=== PATIENT | female | born 1990 | race Two or more races ===

== ENCOUNTER 2018-08-19 21:57 | Emergency (ER) | payer OTHER ==
--- NOTE | 2018-08-19 22:04 | PDOC ---
History of Present Illness - General History Source: Patient Exam Limitations: No Limitations - History of Present Illness Initial Comments: 08/19/18 22:39 The patient is a 27 year old female, with a significant PMH asthma, who presents to the emergency department with bilateral leg pain that began a few days ago. The patient states she went to work and noticed a sharp constant pain to her leg bilaterally that progressively worsened. The patient reports she went to Urgent Care and was prescribed Naproxen however no relief was noted. The patient denies any numbness or tingling. Denies an falls. Denies chest pain, shortness of breath, headache and dizziness. Denies fever, chills, nausea, vomit, diarrhea and constipation. PAST MEDICAL HISTORY: mentioned in HPI PAST SURGICAL HISTORY: no significant history FAMILY HISTORY: no pertinent history SOCIAL HISTORY: Pt lives with family and is employed. MEDICATIONS: reviewed ALLERGIES: As per nursing notes Adult ROS General: No fevers or chills, no weakness, no weight loss HEENT: No change in vision. No sore throat,. No ear pain CardioVascular: No chest pain or shortness of breath Respiratory:No cough, or wheezing. Gastrointestinal: no nausea, vomiting, diarrhea or constipation, No rectal bleeding Genitourinary: No dysuria, hematuria, or frequency Musculoskeletal: +Bilateral leg pain Neurologic: No headache, vertigo, dizziness or loss of consciousness Psychiatric: nor depression Skin: No rashes or easy bruising Endocrine: no increased thirst or abnormal weight change Allergic: no skin or latex allergy All other systems reviewed and normal Basic PE GENERAL: The patient is awake, alert, and fully oriented, in no acute distress. HEAD: Normal with no signs of trauma. EYES: Pupils equal, round and reactive to light, extraocular movements intact, sclera anicteric, conjunctiva clear. EXTREMITIES: +Diffuse tenderness on feet and ankle of the anterior left leg. + Anterior right leg ankle. No erythema, swelling or increase in warmth. NEUROLOGICAL: Normal speech, normal gait. PSYCH: Normal mood, normal affect. SKIN: Warm, Dry, normal turgor, no rashes or lesions noted. <Eric Parada - Last Filed: 08/19/18 22:39> - General History Source: Patient Exam Limitations: No Limitations - History of Present Illness Initial Comments: 08/19/18 22:35 A portion of this note was documented by scribe services under my direction. I have reviewed the details of the note, within reason, and agree with the documentation with the following case summary and management plan written by me. Patient treated in the ED. Nursing notes are reviewed and incorporated into the medical decision-making. Vital signs reviewed. Assessment and plan: This is a 27-year-old female who comes in complaining of arthralgias and myalgias of her legs bilateral times several weeks. Patient denies any systemic symptoms as fevers headache and body aches or chills Workup done including CBC, comp ultrasound Doppler and patient given Toradol for the pain 08/19/18 23:29 Patient's symptoms improved post Toradol. Patient's ultrasound Doppler was negative for DVT. Patient's blood work was unremarkable her CRP was still pending <Chula Erazo I - Last Filed: 08/19/18 23:33> - General Chief Complaint: Pain Stated Complaint: B/L LEG PAIN Time Seen by Provider: 08/19/18 22:03 Past History <Eric Parada - Last Filed: 08/19/18 22:39> <Chula Erazo I - Last Filed: 08/19/18 23:33> - Past Medical History Allergies/Adverse Reactions: Allergies Allergy/AdvReac Type Severity Reaction Status Date / Time nut - unspecified Allergy Verified 08/19/18 21:59 Penicillins Allergy Verified 08/19/18 21:58 Home Medications: Ambulatory Orders Budesonide/Formeterol Fumarate [SYMBICORT 160/4.5mcg -] 1 inh PO BID 08/19/18 Montelukast Sodium [Singulair] 10 mg PO DAILY 08/19/18 Naproxen [Naprosyn -] 500 mg PO ONCE 08/19/18 *Physical Exam - Vital Signs Last Vital Signs Temp Pulse Resp BP Pulse Ox 98.3 F 95 H 16 138/88 100 08/19/18 22:02 08/19/18 22:02 08/19/18 22:02 08/19/18 22:02 08/19/18 22:02 <Eric Parada - Last Filed: 08/19/18 22:39> Moderate Sedation - Procedure Monitoring Vital Signs: Procedure Monitoring Vital Signs Temperature 98.3 F 08/19/18 22:02 Pulse Rate 95 H 08/19/18 22:02 Respiratory Rate 16 08/19/18 22:02 Blood Pressure 138/88 08/19/18 22:02 O2 Sat by Pulse Oximetry (%) 100 08/19/18 22:02 <Eric Parada - Last Filed: 08/19/18 22:39> ED Treatment Course - LABORATORY CBC & Chemistry Diagram: 08/19/18 21:45 08/19/18 21:45 <Chula Erazo I - Last Filed: 08/19/18 23:33> *DC/Admit/Observation/Transfer - Attestations Scribe Attestion: 08/19/18 22:40 Documentation prepared by Eric Parada, acting as product manager medical device for Chula Erazo MD. <Eric Parada - Last Filed: 08/19/18 22:39> - Discharge Dispostion Decision to Admit order: No <Chula Erazo I - Last Filed: 08/19/18 23:33> Diagnosis at time of Disposition: Myalgia Arthralgia Qualifiers: Joint pain location: ankle Laterality: bilateral Qualified Code(s): M25.571 - Pain in right ankle and joints of right foot; M25.572 - Pain in left ankle and joints of left foot - Discharge Dispostion Disposition: HOME Condition at time of disposition: Stable - Patient Instructions Additional Instructions: Continue the naproxen 2 tablets twice a day with food for the pain.. Follow-up with a primary care doctor and you may also need to see a electronics test engineer, Return to the emergency department immediately with ANY new, persistent or worsening symptoms. Continue any medications as previously prescribed by your physician. You should follow up with your primary doctor as soon as possible regarding today's emergency department visit. . Please make sure your doctor reviews the results of your emergency evaluation. Thank you for coming to the Emergency Department today for your care. It was a pleasure to see you today. Please note that your evaluation is INCOMPLETE until you follow-up with your doctor.
[2018-08-19 22:09] VITALS: BP 138/88; PULSE 95; TEMP 98.3; BMI 36.3
[2018-08-19] MEDS ORDERED: KETOROLAC TROMETHAMINE 60 MG/2 ML VIAL IM ONE (22:28)
[2018-08-19] MEDS ORDERED: KETOROLAC TROMETHAMINE 60 MG/2 ML VIAL ONE (22:46)
[2018-08-19 23:01] LABS: HEMATOCRIT 44.6 % (32.4-45.2); HEMOGLOBIN 14.6 GM/dl (10.7-15.3); MCH 28.5 pg (25.7-33.7); MCHC 32.8 g/dl (32.0-36.0); MEAN PLT VOLUME 8.2 fl (7.5-11.1); PLATELET COUNT 354 K/MM3 (134-434); RBC 5.12 M/mm3 (3.60-5.2); RDW 11.8 % (11.6-15.6); WHITE BLOOD COUNT 12.9 K/mm3 (4.0-10.8)
[2018-08-19 23:10] LABS: ALBUMIN 3.9 g/dl (3.5-5.0); ALK PHOS 79 U/L (32-92); ANION GAP 5 MMOL/L (8-16); BILIRUBIN,TOTAL 0.4 mg/dl (0.2-1.0); BLOOD UREA NITROGEN 16 mg/dl (7-18); CALCIUM 9.1 mg/dl (8.4-10.2); CHLORIDE 107 mmol/L (98-107); CO2 24 mmol/L (22-28); CREATININE 0.7 mg/dl (0.6-1.3); GLUCOSE,RANDOM 135 mg/dl (74-106); POTASSIUM 3.9 mmol/L (3.5-5.1); SGOT/AST 26 U/L (10-42); SGPT/ALT 25 U/L (10-40); SODIUM 136 mmol/L (136-145)
[2018-08-19 23:20] LABS: PLATELET ESTIMATE ADEQUATE
== END 2018-08-19 23:36 | disposition home or self-care (01) ==
LOC: FER 21:57
PROC: 3E0233Z Introduction of Anti-inflammatory into Muscle, Percutaneous Approach (ICD-10-PCS; principal; 2018-08-19)
DX: M79.10 Myalgia, unspecified site (principal); M25.571 Pain in right ankle and joints of right foot; M25.572 Pain in left ankle and joints of left foot
CPT/HCPCS: 36415; 80053; 85025; 86140; 86618; 93970-TC; 99282-25